=== PATIENT | female | born 1995 | race Caucasian/White ===

== ENCOUNTER → 2020-06-02 | Outpatient (CLI) | payer OTHER ==
--- NOTE | 2020-06-02 16:39 | KCIC ---
Examination: MRI of the left knee without contrast HISTORY: History of left knee pain, knee pain COMPARISON: None available. Technique: Multiplanar multisequence MR imaging of the left knee was performed without contrast FINDINGS: The anterior cruciate ligament is not identified. The posterior cruciate ligament appears intact. The medial retinaculum, lateral retinaculum appears intact. The medial collateral ligament appears intac t with adequate ligamentous complex appearing the fibular collateral ligament, biceps femoris and pop liteus tendon appears intact The extensor mechanism is intact. There is deep fissuring of cartilage identified in the patellofemor al compartment. There is mild fecal fraying of cartilage identified in the medial, lateral compartmen t. The medial, lateral retinaculum appears intact. Small knee joint effusion Small popliteal cyst is identified. The extensor mechanism is intact. IMPRESSION: 1. Nonvisualization of the anterior cruciate ligament likely chronic tear or ACL deficient knee. 2. Grade II chondromalacia patellofemoral compartment. 3. Small knee joint effusion with small popliteal cyst. Electronically signed by: Seferino Castorena MD (06/02/2020 4:37 PM) [id number]
== END ==
LOC: KCIC MRI 15:37
PROVIDERS: ATTEND Physician Assistant
DX: M22.42 Chondromalacia patellae, left knee (principal); M25.462 Effusion, left knee; M71.22 Synovial cyst of popliteal space [Baker], left knee; M23.92 Unspecified internal derangement of left knee
CPT/HCPCS: 73721